=== PATIENT | female | born 2000 | race Caucasian/White ===

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

== ENCOUNTER → 2019-07-26 | Outpatient (CLI) | payer OTHER ==
--- NOTE | 2019-07-26 10:15 | REP ---
Right shoulder: Three views. History: Pain right shoulder. Findings: The right glenohumeral and acromioclavicular joints are normally aligned. No fracture or subluxation is seen. Periarticular soft tissues are unremarkable. Impression: Negative right shoulder radiographs. Electronically Signed by Mathew Newberry MD 07/26/2019 10:07 A
== END ==
LOC: M RAD 09:21
PROVIDERS: ATTEND Nurse Practitioner Pediatrics
DX: M25.511 Pain in right shoulder (principal)